=== PATIENT | male | born 1990 | race Caucasian/White ===

== ENCOUNTER 2019-12-18 06:39 | Emergency (ER) | payer MEDICAID, SELFPAY ==
--- NOTE | 2019-12-18 07:03 | XR_ITS ---
EXAMINATION: XR SHOULDER, LEFT CLINICAL INFORMATION: Pain. COMPARISON: None TECHNIQUE: Four views of the left shoulder. FINDINGS: No fracture or dislocation. The glenohumeral joint is well aligned. The acromioclavicular joint is intact. Rounded lucency with sclerotic border in the humeral head likely represents a nutrient foramen. The visualized lung is clear. The visualized ribs are intact. IMPRESSION: No acute abnormality. Appropriate alignment of the shoulder.
--- NOTE | 2019-12-18 07:03 | ED.EXTPRO ---
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 Mode of arrival: ambulatory Limitations: no limitations History of Present Illness MD Complaint: extremity pain Onset (ago): week(s) (1) Pain Consistency: constant Location: left Quality: aching Radiation: none Relieving factors: nothing Exacerbating factors: range of motion Associated symptoms: denies other symptoms Related Data Allergies Allergy/AdvReac Type Severity Reaction Status Date / Time No Known Allergies Allergy Verified 12/18/19 07:23 [No Known Allergies*] Review of Systems Review of Systems: Constitutional : No Fever, No Chills ENT/Mouth : No Ear Pain, No Hoarseness, No sore throat Cardiovascular : No Chest Pain, No SOB Respiratory : No Cough, No Dyspnea Gastrointestinal : No Nausea, No Vomiting, No Diarrhea, No abdominal Pain Genitourinary : No Dysuria, No Hematuria Musculoskeletal : positive joint pain, No Myalgias, No Joint Swelling Skin : No Skin lacerations, No rash Neuro : No Weakness, No Numbness, No Loss of Consciousness, No Dizziness, No Headache All other systems reviewed and are negative [facility] Past Medical History Medical History No known health problems Social History Social History Advance Directives: Yes Advance Directives Information Provided: No Advance Directives on File: No Physical Exam Vital Signs: Vital Signs: Vital Signs Temp Pulse Resp BP Pulse Ox 12/18/19 07:20 98.1 F 61 16 127/75 98 Body Mass Index 27.3 Appearance: Alert. Oriented X3. No acute distress. Eyes: Pupils equal, round and reactive to light. ENT: Pharynx normal. Neck: Normal inspection. Neck supple. CVS: Normal heart rate and rhythm. Pulses normal. Respiratory: No respiratory distress. Breath sounds normal. Abdomen: Soft and nontender. Skin: Skin warm and dry. Normal skin color. Normal skin turgor. Extremities: No lower extremity edema. L shoulder pain and trapezius pain with ROM, no crepitus felt, skin normal distal NV intact Neuro: Oriented X 3. No motor deficit. No sensory deficit. MDM - Extremity (Nontraumatic) MDM Narrative Medical decision making narrative: 29 yo male with L sided shoulder pain worse with lifting, NV intact, no signs of trauma, no other complaints at this time will obtain shoulder xray and likely DC home and tell him to stop lifting until improved
[2019-12-18 07:20] VITALS: BP 127/75; PULSE 61; RESP 16; TEMP 36.7; O2SAT 98; BMI 27.3
== END 2019-12-18 08:11 | disposition home or self-care (01) ==
PROVIDERS: Emergency Provider Emergency Medicine
DX: M25.512 Pain in left shoulder (principal)
CPT/HCPCS: 73030; 99283

== ENCOUNTER 2020-01-22 12:36 | Outpatient (REF) | payer MEDICAID, SELFPAY | END 2020-01-22 12:37 | disposition home or self-care (01) | LOC: HO.LAB 12:36 | PROVIDERS: Visit Provider Internal Medicine | DX: Z20.828 Contact with and (suspected) exposure to other viral communicable diseases (principal) | CPT/HCPCS: C9803; U0003 ==